=== PATIENT | female | born 2000 | race African-American/Black ===

== ENCOUNTER 2024-08-01 11:48 | Emergency (ER) | payer OTHER, SELFPAY ==
--- NOTE | ~2024-08-01 | XR_ITS ---
Exam: Abdomen 1V HISTORY: abdomen bloating/constipation x 5 days COMPARISON: None. TECHNIQUE: Supine images of the abdomen Examination is markedly limited secondary to overlying decoration, presumably external to the patient . FINDINGS: Bowel gas pattern is non-obstructive. There is no free air or deep sulci. No pathologic calcifications are seen. Fecal stasis within the colon. The rectum is distended with stool. Lung bases are unremarkable. Bones and remaining soft tissues are unremarkable. IMPRESSION: Fecal stasis with a nonspecific, nonobstructive bowel gas pattern. Reviewed, dictated and finalized at location A.
--- NOTE | 2024-08-01 11:50 | ED.ABDPAIN ---
HPI - Abdominal Pain General Chief Complaint: Abdominal Pain Stated Complaint: ACID REFLUX/CONSTIPATION/NAUSEA/GRADNE/BLOATING/GAS Time Seen by Provider: 08/01/24 11:49 Source: patient Mode of arrival: ambulatory Limitations: no limitations History of Present Illness HPI narrative: Cecelia is a 24-year-old female patient presenting to the clinic today with complaints of constipation, nausea, acid reflux, headache and bloating x5-6 days. She reports she has had 1 very small stool today and 1 very small stool yesterday that was very hard. Has tried taking a suppository yesterday and drinking MiraLax. Does have abdominal cramping at times. Denies any urinary symptoms, vaginal discharge, or odor. No concern for . Last menstrual period was last week-stop taking a control pill and started some breakthrough bleeding. History of IBS. Related Data Allergies Allergy/AdvReac Type Severity Reaction Status Date / Time metronidazole (From Flagyl) AdvReac Unknown Nausea Verified 08/01/24 12:25 nitrofurantoin AdvReac Unknown Nausea Verified 08/01/24 12:25 Review of Systems Review of Systems: Pertinent positives per HPI. Patient denies any fever, chills, rash, headache, visual changes, dizziness, cough, shortness of breath, chest pain, palpitations, vomiting, diarrhea, or any urinary issues. PMFSH Comments At the time of my signature, I reviewed and agree with the nursing past medical, surgical, social, and family history. There is no relevant family history pertinent to the patient complaint. Exam Narrative: General: Well-developed, well nourished, in no apparent distress Head: Normocephalic, atraumatic Eyes: Pupils equally round and reactive to light bilaterally, EOM intact, sclera and conjunctive clear, no discharge, lids normal Ears: TMs intact and clear, ear canals clear, no drainage, grossly hearing normal. Nose: Nares patent, no discharge, no inflammation, no sinus tenderness. Mouth: Oral pharynx without lesions or masses, good dentition, MMM. Neck: Supple, trachea midline, no enlargement of anterior or posterior cervical nodes, no thyroid masses or goiter palpable. Cardio: Regular rate and rhythm, s1 and s2 normal, no murmur appreciated. Resp: Clear to auscultation bilaterally, no rhonchi, rales, wheezing or rubs Abdomen: Soft, pliable, distended, bowel sounds present in all quadrants, mild generalized tenderness to palpation, no organomegly, no CVAT tenderness. Course Course Emergency Course: Portions of this record may have been created with voice recognition software. Level of Care: Express Care Visit Vital Signs Vital signs: Vital Signs Oxygen Delivery Room Air 08/01/24 12:00 Temperature 36.6 C 08/01/24 12:01 Pulse Rate 73 08/01/24 12:01 Respiratory Rate 18 08/01/24 12:01 Blood Pressure 119/60 08/01/24 12:01 Pulse Oximetry 99 08/01/24 12:01 Oxygen Delivery Room Air 08/01/24 12:00 Vital signs reviewed MDM - Abdominal Pain MDM Narrative Medical decision making narrative: At the time of visit patient is resting comfortably on the exam table. Patient appears to be nontoxic. Diagnostics: X-rays shows constipation with normal bowel gas pattern. Medications: Mylanta 30 mL p.o. and lidocaine 15 mL p.o. given in the clinic for GERD symptoms Plan: I suspect patient has GERD with constipation. Prescriptions for omeprazole, MiraLax, magnesium citrate, and bisacodyl laxative was sent to the pharmacy. Supportive measures were discussed with the patient and they voiced understanding discharge instructions and agrees to treatment plan. Return precautions reviewed Differential Diagnosis Differential diagnosis: Likely abdominal pain, acute appendicitis, calculus of kidney, constipation, diverticulitis, endometriosis, gastroenteritis, pancreatitis, small bowel obstruction and other Lab Data Labs: Lab Results 08/01/24 Range/Units 12:11 POC Urine Color Yellow POC Urine Clarity Clear POC Urine pH 7.0 POC Ur Specif [place] 1.015 POC Urine Protein Negative (Negative) POC Ur Glucose (UA) Negative (Negative) POC Urine Ketones Negative (Negative) POC Urine Blood Negative (Negative) POC Urine Nitrite Negative (Negative) POC Urine Bilirubin Negative (Negative) POC Urine Urobilinogen 0.2 POC U Leukocyte Esteras Negative (Negative) POC Urine HCG, Qual Negative (Negative) Imaging Data Radiologist's impression: ITS Impressions Abdomen X-Ray 08/01/24 12:33 IMPRESSION: Fecal stasis with a nonspecific, nonobstructive bowel gas pattern. Discharge Plan Discharge Clinical Impression: Constipation Qualifiers: Constipation type: unspecified constipation type Qualified Code(s): K59.00 - Constipation, unspecified GERD (gastroesophageal reflux disease) Qualifiers: Esophagitis presence: esophagitis presence not specified Qualified Code(s): K21.9 - Gastro-esophageal reflux disease without esophagitis Patient Disposition: Home Condition: Stable Instructions: Antibiotic Form, Constipation (ED), GERD (Gastroesophageal Reflux Disease) (ED) Additional Instructions: Urinalysis is negative for any sign of infection, blood, or protein. Bedside test was negative KUB x-ray shows constipation Take medications as directed- 1 bottle of magnesium citrate, bisacodyl laxative, and miralax. Increase fiber in your diet Increase fluids and stay well hydrated Avoid eating spicy or fatty foods, chocolate, or drinking caffeine. Avoid foods that cause you to feel bloated. Stay upright for at least 30 minutes after eating. May use tums for immediate relief for acid reflux symptoms. Follow up with your PCP in 3-5 days if symptoms persist. Patient Language: Honduran Prescriptions: New magnesium citrate Solution 300 ml PO DAILY 1 Days Qty: 296 0RF Rx Instructions: drink 150ml with 10mg of Bisacodyl laxative in 15 minutes- if no results within 1 hour drink the other 150ml within 15 minutes. bisacodyl 5 mg tablet 10 mg PO ONCE 1 Days Qty: 2 0RF polyethylene glycol 3350 [Miralax] 17 gram/dose powder 17 g PO BID 14 Days Qty: 476 0RF omeprazole 20 mg capsule,delayed release(DR/EC) 20 mg PO DAILY 30 Days Qty: 30 0RF Follow-up/Referrals: UNKNOWN,DOCTOR [Non-Staff] - Stand Alone Forms: Work/School Release IP Time of Disposition: 12:45 Quality NIHSS Nursing Documentation ED NIHSS nursing documentation: reviewed/agree
[2024-08-01 12:01] VITALS: BP 119/60; PULSE 73; RESP 18; TEMP 36.6; O2SAT 99
[2024-08-01 12:13] LABS: BEDSIDEPREGUCG Negative (Negative); EDUAAPPEAR Clear; EDUABILI Negative (Negative); EDUABLOOD Negative (Negative); EDUACOLOR1 Yellow; EDUAGLUCOSE Negative (Negative); EDUAKETONE Negative (Negative); EDUALEUKO Negative (Negative); EDUANITRATE Negative (Negative); EDUAPROTEIN Negative (Negative); EDUASPGRAVITY 1.015; EDUAUROBILI 0.2
[2024-08-01] MEDS: LIDOCAINE 2% VISC SOLN 15 ML UDC PO (12:31)
[2024-08-01] MEDS: MAG HYDROX/AL HYDROX/SIMETH 30 ML UDC PO (12:31)
== END 2024-08-01 12:50 | disposition home or self-care (01) ==
PROVIDERS: Emergency Provider Nurse Practitioner Family
DX: K59.00 Constipation, unspecified (principal); K21.9 Gastro-esophageal reflux disease without esophagitis; K58.9 Irritable bowel syndrome, unspecified
CPT/HCPCS: 74018; 81003; 81025; 99203; A9270; G0463

== ENCOUNTER 2024-12-22 13:40 | Emergency (ER) | payer OTHER, SELFPAY ==
[2024-12-22 13:50] VITALS: BP 115/81; PULSE 60; RESP 16; TEMP 36.5; O2SAT 100
--- NOTE | 2024-12-22 14:05 | ED.FEMALEGU ---
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 She states she tested positive and treated for Trichomonas and mycolasma genitalium on 11/29/2024 in [place]. Says she was advised to retest for cure. Says she has intermittent burning with urination, and had some clumpy white discharge. Denies hematuria, nausea, vomiting, abdominal pain, flank pain, constipation, diarrhea, fevers or chills. Denies concern for . Related Data Allergies Allergy/AdvReac Type Severity Reaction Status Date / Time metronidazole (From Flagyl) AdvReac Unknown Nausea Verified 12/22/24 13:55 nitrofurantoin AdvReac Unknown Nausea Verified 12/22/24 13:55 Review of Systems Review of Systems: CONSTITUTIONAL: Denies body aches, fever, chills, or sweats. CARDIOVASCULAR: Denies chest pain, palpitations, or edema. RESPIRATORY: Denies cough or dyspnea. GASTROINTESTINAL: Denies abdominal pain, nausea, vomiting, or diarrhea. GENITOURINARY: denies dysuria, frequency, urgency, hematuria, flank pain, discharge SKIN: Denies rash, itching, or wounds. MUSCULOSKELETAL: Denies back pain or myalgia. PMFSH Comments At time of signature, I have reviewed and agree with nursing past medical, surgical, social and family history unless otherwise noted. Please see nursing chart for further information. There is no relevant family history pertinent to the presenting complaint Exam Narrative: GENERAL: Well-appearing and in no acute distress. ENT: Mucous membranes pink and moist. NECK: Normal AROM. Supple. CHEST: No respiratory distress. Clear to auscultation. HEART: Regular rate and rhythm. ABDOMEN: Soft, nontender, nondistended, normal active bowel sounds. No CVA tenderness SKIN: Warm, dry, no rash. NEURO: No focal deficits. Alert and oriented x3. Gait steady. PSYCH: Normal affect. Course Course Emergency Course: Patient is aware of diagnosis, understands and agrees to treatment plan. Anticipatory guidance given. Patient agrees to follow-up as directed and is aware of reasons to seek care at the emergency department. Portions of this record may have been created with voice recognition software Level of Care: Express Care Visit Vital Signs Vital signs: Vital Signs Temperature 97.7 F 12/22/24 13:50 Pulse Rate 60 12/22/24 13:50 Respiratory Rate 16 12/22/24 13:50 Blood Pressure 115/81 12/22/24 13:50 Pulse Oximetry 100 12/22/24 13:50 Temperature 97.7 F 12/22/24 13:50 Pulse Rate 60 12/22/24 13:50 Respiratory Rate 16 12/22/24 13:50 Blood Pressure 115/81 12/22/24 13:50 Pulse Oximetry 100 12/22/24 13:50 Reviewed MDM - Female Genitourinary MDM Narrative Medical decision making narrative: Discussed physical exam findings; will culture urine and send for trich and culture mycoplasma genitalium (ordered as [facility] [place] culture). Pt declines testing for gonorrhea or chlamydia. Informed Pt will be contacted w/ results when they become available if they are positive. Discussed with patient that it takes up to 7 days for results of cultures to be released and explained that we may treat empirically at this time. Will treat for yeast at this time. Advised supportive measures and signs/symptoms to go to the ER. Pt is appropriate for outpt treatment and f/u. Differential Diagnosis Differential diagnosis: Likely urinary tract infection, bacterial vaginosis, trichomoniasis, vaginitis, cystitis and other Lab Data Labs: Lab Results 12/22/24 Range/Units 14:23 Miscellaneous Test Pending Discharge Plan Discharge Clinical Impression: Concern about STD in female without diagnosis Patient Disposition: Home Condition: Stable Instructions: Antibiotic Form, Sexually Transmitted Diseases (ED), Safe Sex Practices (ED) Additional Instructions: Your urine has been sent off to test fo trichomonas, and the swab was sent to test for mycoplasma genitalium. You will be called if any of your tests come back positive. These tests can take up to 5 days to come back. If your tests come back positive you will need further treatment, and you will need to notify any partners that you have so they can be tested and treated. To avoid reinfection, you are advised to abstain from sexual intercourse until you and sex partners have been treated (ie, after completing the 7-day antibiotic regimen, and any symptoms have resolved. Prescription to treat for yeast (fluconazole) has been sent. Your urine will also be sent of for a culture to determine if bacteria is causing your symptoms. If the culture shows a UTI, you will be notified and an antibiotic will be called in for you. If your tests come back negative and you are still experiencing symptoms, please follow-up with your PCP or obgyn for further evaluation and treatment. If your symptoms worsen to include fever, abdominal pain, or back pain, please go to the hospital immediately. Patient Language: Maltese Prescriptions: New fluconazole 150 mg tablet 150 mg PO DAILY Qty: 2 0RF Follow-up/Referrals: Jonathan,Casandra [Other] Time of Disposition: 14:32
[2024-12-22 18:59] LABS: Trichomonas Vag PCR NOT DETECTED (NOT DETECTE)
== END 2024-12-22 14:37 | disposition home or self-care (01) ==
PROVIDERS: Emergency Provider Nurse Practitioner Family
DX: Z20.2 Contact with and (suspected) exposure to infections with a predominantly sexual mode of transmission (principal)
CPT/HCPCS: 87086; 87661; 99213; G0463

== ENCOUNTER 2025-01-26 15:03 | Emergency (ER) | payer OTHER, SELFPAY ==
--- NOTE | ~2025-01-26 | XR_ITS ---
EXAMINATION: XR abdomen/kub 1V, 01/26/2025 15:38 CDT HISTORY: constipation COMPARISON: No comparisons available. Technique: 3 view. Findings: Moderate fecal content, no dilated bowel loops No free air. No abnormal calcifications No acute osseous abnormality. Impression: 1. No acute abnormality. Reviewed, dictated and finalized at location P. Impression: 1. No acute abnormality.
[2025-01-26 15:11] VITALS: BP 109/69; PULSE 65; RESP 20; TEMP 36.3; O2SAT 100
--- NOTE | 2025-01-26 15:17 | ED.ABDPAIN ---
HPI - Abdominal Pain General Chief Complaint: Abdominal Pain Stated Complaint: Stomach Pain Time Seen by Provider: 01/26/25 15:42 Source: patient and RN notes reviewed Mode of arrival: ambulatory Limitations: no limitations History of Present Illness HPI narrative: 24-year-old female presents with concern for constipation she reports week ago Tuesday she drank milk which has caused her to be constipated. Reports she drank small amount of magnesium titrate Tuesday and had a small bowel movement. Reports today she had to hard round balls of stool, otherwise is not had a bowel movement. She reports bloating. Denies vomiting. Denies abdominal pain fever MD elicited complaint: other (Constipation) Related Data Home Medications ?Medication ?Instructions ?Recorded ?Confirmed ?Last Taken ?Type ergocalciferol (vitamin D2) 1,250 01/26/25 Unknown History mcg (50,000 unit) capsule norethindrone 1 mg-ethinyl tablet 01/26/25 Unknown History estradiol 20 mcg (21)-iron 75 mg (7) tablet (Aurovela Fe 1-20 (28)) Allergies Allergy/AdvReac Type Severity Reaction Status Date / Time metronidazole (From Flagyl) AdvReac Unknown Nausea Verified 01/26/25 15:06 nitrofurantoin AdvReac Unknown Nausea Verified 01/26/25 15:06 Review of Systems Review of Systems: CONSTITUTIONAL: Denies malaise, chills, sweats, or fever. GASTROINTESTINAL: Denies abdominal pain, nausea, vomiting, diarrhea, bloody, or mucous stools. Reports constipation and bloating All systems reviewed & are unremarkable except as noted in HPI and below PMFSH Comments At time of signature, agree with nursing past medical, surgical, social and family history. There is no relevant family history pertinent to the presenting complaint Exam Narrative: GENERAL: Well-appearing, well-nourished, and in no acute distress. HEAD: Normocephalic, atraumatic. EYES: PERRLA, conjunctivae clear, and EOMI. ENT: Nares clear. Mucous membranes moist. NECK: Supple. No lymphadenopathy CHEST: Speaks in full sentences. No respiratory distress. HEART: Regular rate and rhythm. ABDOMEN: Soft, flat, nondistended, nontender. No guarding, rebound tenderness, or rigidity. No pulsatile masses. Bowel sounds present in all four quadrants. No organomegaly. SKIN: Warm, dry, no rash. NEURO: Alert and oriented x3. PSYCH: Normal mood and affect Course Course Emergency Course: Patient is aware of diagnosis, understands and agrees to treatment plan. Anticipatory guidance given. Patient agrees to follow-up as directed and is aware of reasons to seek care at the emergency department. Portions of this record may have been created with voice recognition software Level of Care: Express Care Visit Vital Signs Vital signs: Vital Signs Temperature 97.4 F L 01/26/25 15:11 Pulse Rate 65 01/26/25 15:11 Respiratory Rate 20 01/26/25 15:11 Blood Pressure 109/69 01/26/25 15:11 Pulse Oximetry 100 01/26/25 15:11 Oxygen Delivery Room Air 01/26/25 15:11 Temperature 97.4 F L 01/26/25 15:11 Pulse Rate 65 01/26/25 15:11 Respiratory Rate 20 01/26/25 15:11 Blood Pressure 109/69 01/26/25 15:11 Pulse Oximetry 100 01/26/25 15:11 Oxygen Delivery Room Air 01/26/25 15:11 Reviewed. Critical Care Time Critical Care Time Critical Care Time: No Discharge Plan Discharge Clinical Impression: Constipation Patient Disposition: Home Condition: Stable Instructions: Constipation (ED) Additional Instructions: Your x-ray looks normal Take Magnesium Citrate as directed - drink the entire bottle. If your bowels do not empty completely, take Miralax 1 capful twice daily until bowel movements are regular. To maintain soft stools after constipation is relieved, you may take 1 capful of MiraLax daily for 1 week Maintain fluid intake 6-8 glasses per day. Please increase fibers (fruits and vegetables) in your diet, or use bulk fiber supplements. Decrease or eliminate intake of fast food and junk foods. Patient Language: Jordanian Prescriptions: New magnesium citrate [Citroma] Solution 296 ml PO ONCE Qty: 296 0RF Rx Instructions: Drink 1-2 ounces every fifteen minutes until gone No Action fluconazole 150 mg tablet 150 mg PO DAILY Qty: 2 0RF doxycycline monohydrate 100 mg capsule 100 mg PO BID 7 Days Qty: 14 0RF Rx Instructions: Take doxycycline 1st for 1 week then take moxifloxacin after completing doxycycline for 1 week. moxifloxacin 400 mg tablet 400 mg PO DAILY 7 Days Qty: 7 0RF Rx Instructions: Complete doxycycline 1st then start moxifloxacin. norethindrone-e.estradiol-iron [Aurovela Fe 1-20 (28)] 1 mg-20 mcg (21)/75 mg (7) tablet ergocalciferol (vitamin D2) 1,250 mcg (50,000 unit) capsule Follow-up/Referrals: PHYSICIAN,GENERAL CAR SUPERVISOR YARD [Primary Care Provider, Internal Medicine] Stand Alone Forms: Work/School Release IP Time of Disposition: 16:06
== END 2025-01-26 16:08 | disposition home or self-care (01) ==
PROVIDERS: Emergency Provider Nurse Practitioner
DX: K59.00 Constipation, unspecified (principal)
CPT/HCPCS: 74018; 99213; G0463

== ENCOUNTER 2025-02-18 17:16 | Emergency (ER) | payer OTHER, SELFPAY ==
[2025-02-18 17:33] VITALS: BP 124/89; PULSE 89; RESP 18; TEMP 36.8; O2SAT 100
--- NOTE | 2025-02-18 18:06 | ED.FEMALEGU ---
HPI - Female Genitourinary General Chief complaint: Urogenital-Female Stated complaint: Uti Symptoms/Bloating Time Seen by Provider: 02/18/25 17:59 Source: patient and RN notes reviewed Mode of arrival: ambulatory Limitations: no limitations History of Present Illness HPI Narrative: 24-year-old female patient presents today complaining of one-week history urinary urgency and dysuria as well as some ongoing chronic constipation. She was started on Linzess 1 week ago by her PCP. She has not had a normal bowel movement in 4 days. She has not taken anything in addition to the Linzess to help her past stool. She denies abdominal pain, but does report some bloating. Related Data Home Medications ?Medication ?Instructions ?Recorded ?Confirmed ?Last Taken ?Type ergocalciferol (vitamin D2) 1,250 1,250 mcg PO DAILY 01/26/25 02/18/25 Unknown History mcg (50,000 unit) capsule linaclotide 145 mcg capsule 145 mcg PO DAILY 02/18/25 02/18/25 Unknown History (Linzess) valacyclovir 500 mg tablet 500 mg PO DAILY 02/18/25 02/18/25 Unknown History Allergies Allergy/AdvReac Type Severity Reaction Status Date / Time metronidazole (From Flagyl) AdvReac Unknown Nausea Verified 02/18/25 17:29 nitrofurantoin AdvReac Unknown Nausea Verified 02/18/25 17:29 PMFSH Comments At time of signature, I have reviewed and agree with nursing past medical, surgical, social and family history unless otherwise noted. Please see nursing chart for further information. There is no relevant family history pertinent to the presenting complaint Exam Narrative: GENERAL: Well-appearing, well-nourished, and in no acute distress. HEAD: Normocephalic, atraumatic. EYES: EOMI. No redness or drainage. Conjunctivae normal. ENT: Mucous membranes pink and moist.. NECK: Normal AROM. CHEST: No respiratory distress. Clear to auscultation. HEART: Regular rate and rhythm. No murmur appreciated. ABDOMEN: Soft, nontender, nondistended, normal active bowel sounds. EXTREMITIES: Normal range of motion. No edema. SKIN: Warm, dry, no rash. Capillary refill normal. Normal skin turgor. NEURO: No focal deficits. Alert and oriented x3. Gait steady. PSYCH: Normal affect. No signs of depression or anxiety. Course Course Level of Care: Express Care Visit Vital Signs Vital signs: Vital Signs Temperature 98.2 F 02/18/25 17:33 Pulse Rate 89 02/18/25 17:33 Respiratory Rate 18 02/18/25 17:33 Blood Pressure 124/89 02/18/25 17:33 Pulse Oximetry 100 02/18/25 17:33 Temperature 98.2 F 02/18/25 17:33 Pulse Rate 89 02/18/25 17:33 Respiratory Rate 18 02/18/25 17:33 Blood Pressure 124/89 02/18/25 17:33 Pulse Oximetry 100 02/18/25 17:33 Reviewed MDM - Female Genitourinary MDM Narrative Medical decision making narrative: 24-year-old female patient presents today complaining of one-week history urinary urgency and dysuria as well as some ongoing chronic constipation. She was started on Linzess 1 week ago by her PCP. She has not had a normal bowel movement in 4 days. She has not taken anything in addition to the Linzess to help her past stool. She denies abdominal pain, but does report some bloating. Patient has normal physical exam. Urinalysis shows trace leukocytes but is otherwise negative. Will send urine off for culture and hold off treating with antibiotics until the culture comes back. Patient agrees with plan. For patient's constipation, recommend some MiraLax or docusate and increasing water intake. Also recommend following up with prescriber of the Linzess to notify that it does not seem to be helping. Patient agrees with plan. Vital signs stable. Anticipatory guidance given. Differential Diagnosis Differential diagnosis: Likely urinary tract infection, cystitis and other (Constipation) Lab Data Labs: Lab Results 02/18/25 Range/Units 18:28 POC Urine Color Yellow POC Urine Clarity Clear POC Urine pH 7.0 POC Ur Specif [place] 1.015 POC Urine Protein Negative (Negative) POC Ur Glucose (UA) Negative (Negative) POC Urine Ketones Negative (Negative) POC Urine Blood Negative (Negative) POC Urine Nitrite Negative (Negative) POC Urine Bilirubin Negative (Negative) POC Urine Urobilinogen 0.2 POC U Leukocyte Esteras Trace (Negative) Critical Care Time Critical Care Time Critical Care Time: No Discharge Plan Discharge Clinical Impression: Dysuria Constipation Qualifiers: Constipation type: unspecified constipation type Qualified Code(s): K59.00 - Constipation, unspecified Patient Disposition: Home Condition: Stable Instructions: Constipation (DC), Dysuria (ED) Additional Instructions: Your urinalysis is not consistent with an active infection at this time. As discussed, your urine will be sent to the hospital for urine culture and you will be notified of any positive results and antibiotics will be called in for you at that time. You may want to try some MiraLax or docusate, but be sure to drink plenty of water. Follow-up with your doctor that prescribes the Linzess if the constipation continues. Patient Language: Divehi Prescriptions: No Action ergocalciferol (vitamin D2) 1,250 mcg (50,000 unit) capsule 1,250 mcg PO DAILY Linzess 145 mcg capsule 145 mcg PO DAILY valacyclovir 500 mg tablet 500 mg PO DAILY Follow-up/Referrals: PHYSICIAN,DRAFTER CARTOGRAPHIC [Primary Care Provider, Internal Medicine] Stand Alone Forms: Work/School Release IP Time of Disposition: 18:37
[2025-02-18 18:31] LABS: EDUAAPPEAR Clear; EDUABILI Negative (Negative); EDUABLOOD Negative (Negative); EDUACOLOR1 Yellow; EDUAGLUCOSE Negative (Negative); EDUAKETONE Negative (Negative); EDUALEUKO Trace (Negative); EDUANITRATE Negative (Negative); EDUAPH 7.0; EDUAPROTEIN Negative (Negative); EDUASPGRAVITY 1.015; EDUAUROBILI 0.2
== END 2025-02-18 18:42 | disposition home or self-care (01) ==
PROVIDERS: Emergency Provider Nurse Practitioner
DX: R30.0 Dysuria (principal); K59.00 Constipation, unspecified
CPT/HCPCS: 81003; 87086; 99213; G0463